=== PATIENT | male | born 1975 | race Caucasian/White ===

== ENCOUNTER 2016-12-30 10:11 | Day surgery (SDC) | payer OTHER ==
[~2016-12-30] VITALS: Ht 162.6 cm; Wt 79.5 kg
[~2016-12-30 10:11] MED LIST: CALCIUM 600 +1 EAC3 PO; COLACE50 MG PO; DEPO-TESTOS200 MG/ML IM; DILAUDID2 MG PO; DOXYCYCLINE HY100 MG PO; EFFEXOR XR150 MG PO; FUROSEMIDE80 MG PO; LASIX80 MG PO; LISINOPRIL10 MG PO; LOMOTIL TABLET1 EACH PO; METHADONE10 MG PO; NORCO 5/3251 TABLET PO; ONCE DAILY1 EACH PO; POTASSIUM CHLO10 ME3 PO; PROTEIN POWDER454 G1 PO; SENOKOT S,PE1 TABLET PO; TESTOSTERO100 MG/1 M IM; VALIUM2 MG PO; VIAGRA100 MG PO; ZOFRAN4 MG PO
[2016-12-30 10:38] VITALS: BP 114/73
[2016-12-30] MEDS ORDERED: DILAUDID2 MG PO (14:07)
[2016-12-30 14:58] VITALS: BP 120/85
[2016-12-30 15:50] VITALS: BP 132/72
== END 2016-12-30 16:05 | disposition home or self-care (01) ==
LOC: SDC 10:11
PROC: 06BY0ZC Excision of Hemorrhoidal Plexus, Open Approach (ICD-10-PCS; principal; 2016-12-30)
DX: K64.4 Residual hemorrhoidal skin tags (principal); K62.5 Hemorrhage of anus and rectum; I10 Essential (primary) hypertension; G82.20 Paraplegia, unspecified; E66.9 Obesity, unspecified; Z87.891 Personal history of nicotine dependence; M54.5 Low back pain; G89.29 Other chronic pain; E78.5 Hyperlipidemia, unspecified; Z87.828 Personal history of other (healed) physical injury and trauma
CPT/HCPCS: 88304; J0330; J0585; J2405; J2710; J3010; S0030